=== PATIENT | female | born 1955 | race African-American/Black ===

== ENCOUNTER → 2016-10-23 | Outpatient (CLI) | payer MEDICAID ==
[~2016-10-23] MED LIST: AMIO200T33 OR; ASPI-266 PO; CARV25TA55 OR; CLOP75TA28 PO; FAM20T PO; FURO40TA OR; HYDR200T36 PO; IPRAAER5 IN; LEVO25TA6 PO; POTA20TA53 OR; SPIR25TA88 PO; VALS80TA42 OR
[2016-10-23 08:25] VITALS: BP 130/95
[2016-10-23 09:30] VITALS: BP 155/91
[2016-10-23 12:26] LABS: Hematocrit 39.3 % (36.0-46.0); Mean Corpuscular Hemoglobin 28.7 pg (28.0-32.0); Mean Corpuscular Volume 86.9 fL (80.0-100.0); Mean Platelet Volume 11.1 fL (7.4-10.4); Platelet Count (auto) 164 10^3/uL (140-450); Red Cell Distribution Width 13.6 % (11.6-16.0); SUSPECT VIEW TRANSMISSION; White Blood Cell 3.7 10^3/uL (4.4-10.8)
[2016-10-23 12:50] LABS: Metamyelocytes % 0; Myelocytes % 0; Promyelocytes % 0; Reactive Lymphocytes 0
[2016-10-23 12:56] LABS: INR 0.99 (0.9-1.15); Partial Thromboplastin Time 31.6 sec (22.64-33.71); Prothrombin Time 10.8 sec (9.37-12.3)
[2016-10-23 13:09] LABS: Calcium 9.8 mg/dL (8.5-10.1)
[2016-10-23 13:11] LABS: BUN/Creatinine Ratio 21.4
[2016-10-23 14:01] LABS: Platelet Estimate Adequate; RBC Morphology Normal
== END | disposition home or self-care (01) ==
LOC: Rad HDHVI 08:11
PROVIDERS: ATTEND Internal Medicine Cardiovascular Disease
DX: I10 Essential (primary) hypertension (principal); D64.9 Anemia, unspecified; R79.1 Abnormal coagulation profile; Z01.812 Encounter for preprocedural laboratory examination
CPT/HCPCS: 36415; 71020; 80048; 85007; 85027; 85610; 85730; 93005; G0463

== ENCOUNTER 2016-10-25 07:46 | Inpatient (IN) | payer MEDICAID ==
[~2016-10-25] VITALS: Ht 175.3 cm; Wt 82.3 kg
[2016-10-25] MEDS ORDERED: ceFAZolin 1GM/50ML D5W 50 ML IV ONE (08:15)
[2016-10-25] MEDS ORDERED: VANCOMYCIN HCL 1000 MG VL IR ONE (08:15)
[2016-10-25] MEDS ORDERED: VANCOMYCIN 1GM/250ML D5W 250 ML IV ONE (08:15)
[2016-10-25] MEDS ORDERED: BENA1POW PO (08:44)
[2016-10-25] MEDS ORDERED: FURO20TA3 PO (08:44)
[2016-10-25] MEDS ORDERED: LISI-646 PO (08:44)
[2016-10-25] MEDS ORDERED: FAMO40TA49 PO (08:44)
[2016-10-25] MEDS ORDERED: SIMV-8 PO (08:44)
[2016-10-25] MEDS ORDERED: CARV3.1240 PO (08:44)
[2016-10-25] MEDS ORDERED: SPIR25TA89 PO (08:44)
[2016-10-25] MEDS ORDERED: MIDAZOLAM HCL 1MG/1ML-2 ML VIAL ONE (09:18)
[2016-10-25] MEDS ORDERED: fentaNYL CITRATE 100 MCG/2 ML VL ONE (09:18)
[2016-10-25] MEDS ORDERED: VANCOMYCIN HCL 1000 MG VL ONE (09:22)
[2016-10-25] MEDS ORDERED: SODIUM CHLORIDE 0.9% 1,000 ML IV SCH (11:50)
[2016-10-25] MEDS ORDERED: ACETAMINOPHEN 325 MG TAB PO PRN (12:00)
[2016-10-25] MEDS ORDERED: NITROGLYCERIN 0.4 MG SL TAB SL PRN (12:00)
[2016-10-25] MEDS ORDERED: MORPHINE SULF INJ 2 MG/ML SYRINGE 1ML IV PRN (12:00)
[2016-10-25 14:21] VITALS: BP 134/90
[2016-10-25] MEDS: HYDROcodone-ACET 5/325MG TAB PO PRN ×2 (16:15→21:13)
[2016-10-25 21:40] VITALS: BP 106/55
[2016-10-25] MEDS ORDERED: PATIENTS OWN MEDICATION (Benazepril Hcl 40 MG) PO SCH ×2 (22:00)
[2016-10-25] MEDS ORDERED: ATORVASTATIN 20 MG TAB PO SCH (22:00)
[2016-10-25] MEDS: FAMOTIDINE 20 MG TAB PO SCH (22:19)
[2016-10-25] MEDS: VANCOMYCIN 1GM/250ML D5W 250 ML IV SCH (22:19)
[2016-10-26 04:50] VITALS: BP 99/60
[2016-10-26] MEDS: FAMOTIDINE 20 MG TAB PO SCH (08:47)
[2016-10-26 08:51] VITALS: BP 121/79
[2016-10-26] MEDS: VANCOMYCIN 1GM/250ML D5W 250 ML IV SCH (08:51)
[2016-10-26] MEDS ORDERED: FUROSEMIDE 20 MG TAB PO SCH (10:00)
[2016-10-26] MEDS ORDERED: LISINOPRIL 20 MG TAB PO SCH (10:00)
[2016-10-26] MEDS ORDERED: SPIRONOLACTONE 25 MG TAB PO SCH (10:00)
[2016-10-26] MEDS ORDERED: CARVEDILOL 3.125 MG TAB PO SCH (10:00)
[2016-10-26] MEDS: HYDROcodone-ACET 5/325MG TAB PO PRN (11:34)
[2016-10-26 13:00] VITALS: BP 116/67
== END 2016-10-26 15:45 | disposition home or self-care (01) | DRG 161 ==
LOC: CATH 07:46 → TELE 07:47 → TELE-E-ADS 14:25 → TELE-WESTW 18:45
PROVIDERS: ADMIT Internal Medicine Cardiovascular Disease; ATTEND Internal Medicine Cardiovascular Disease
PROC: 0JPT0PZ Removal of Cardiac Rhythm Related Device from Trunk Subcutaneous Tissue and Fascia, Open Approach (ICD-10-PCS; principal; 2016-10-25)
PROC: 0JH609Z Insertion of Cardiac Resynchronization Defibrillator Pulse Generator into Chest Subcutaneous Tissue and Fascia, Open Approach (ICD-10-PCS; 2016-10-25)
PROC: 02HL3KZ Insertion of Defibrillator Lead into Left Ventricle, Percutaneous Approach (ICD-10-PCS; 2016-10-25)
DX: I42.0 Dilated cardiomyopathy (principal); I50.21 Acute systolic (congestive) heart failure; I45.9 Conduction disorder, unspecified
CPT/HCPCS: 33216; 33264; 71010; 93005; J0690; J2250

== ENCOUNTER 2017-10-28 19:28 | Inpatient (IN) | payer MEDICAID ==
[~2017-10-28] VITALS: Ht 175.3 cm; Wt 76.7 kg
[~2017-10-28 19:28] MED LIST changes: -AMIO200T33 OR; -ASPI-266 PO; +BENA1POW PO; -CARV25TA55 OR; +CARV3.1240 PO; -CLOP75TA28 PO; -FAM20T PO; +FAMO40TA49 PO; +FURO20TA3 PO; -FURO40TA OR; -HYDR200T36 PO; -IPRAAER5 IN; -LEVO25TA6 PO; +LISI-646 PO; -POTA20TA53 OR; +SIMV-8 PO; -SPIR25TA88 PO; +SPIR25TA89 PO; -VALS80TA42 OR
[2017-10-28 20:28] LABS: Basophils # (auto) 0 uL; Basophils % (auto) 0.5 % (0.0-2.0); Eosinophils # (auto) 0.2 uL; Eosinophils % (auto) 2.9 % (0.0-7.0); Hematocrit 40.8 % (36.0-46.0); Hemoglobin 13.4 g/dL (12.2-16.2); Lymphocytes # (auto) 2.6 uL; Lymphocytes % (auto) 47.4 % (10.0-50.0); Mean Corpuscular Hemoglobin 28.7 pg (28.0-32.0); Mean Corpuscular Hgb Conc. 32.8 g/dL (32.0-36.0); Mean Corpuscular Volume 87.6 fL (80.0-100.0); Monocytes # (auto) 0.5 uL; Monocytes % (auto) 9.2 % (0.0-12.0); Neutrophils # (auto) 2.2 uL; Nucleated Red Blood Cells % 0.1 %; Platelet Count (auto) 150 10^3/uL (140-450); Red Blood Cells 4.66 10^6/uL (4.0-5.20); White Blood Cell 5.4 10^3/uL (4.4-10.8)
[2017-10-28 20:48] LABS: Albumin 3.8 g/dL (3.4-5.0); Anion Gap 9 (5-15); Blood Urea Nitrogen 20 mg/dL (7-18); Calcium 9.7 mg/dL (8.5-10.1); Carbon Dioxide 21 mmol/L (21-32); Chloride 111 mmol/L (98-107); Glucose 99 mg/dL (74-106); Potassium 3.9 mmol/L (3.5-5.1); Sodium 141 mmol/L (136-145)
[2017-10-28 20:51] LABS: Alanine Aminotransferase 22 U/L (13-56); Aspartate Aminotransferase 15 U/L (15-37); BUN/Creatinine Ratio 22.2; GFR African American 82 mL/min; GFR Non-African American 68 mL/min
[2017-10-28 20:52] LABS: INR 0.9 (0.9-1.15); Partial Thromboplastin Time 28.5 sec (23.78-33.04); Prothrombin Time 9.7 sec (9.27-12.13)
[2017-10-28 21:07] LABS: Alkaline Phosphatase 70 U/L (45-117); Bilirubin, Total 0.5 mg/dL (0.2-1.0); Total Protein 7.5 g/dL (6.4-8.2)
[2017-10-28 21:48] LABS: Urine Bacteria NONE SEEN /hpf (None Seen); Urine Blood Negative /uL (Negative); Urine Mucus FEW (None Seen); Urine Specific Gravity 1.025 (1.001-1.035); Urine WBC 3 /hpf (0 - 5)
[2017-10-29] MEDS ORDERED: NITROGLYCERIN 0.4 MG SL TAB SL PRN (01:45)
[2017-10-29] MEDS ORDERED: HYDROcodone-ACET 5/325MG TAB PO PRN (01:45)
[2017-10-29] MEDS ORDERED: ONDANSETRON HCL 4 MG/2 ML VIAL IV PRN (01:45)
[2017-10-29] MEDS ORDERED: ACETAMINOPHEN 500 MG TAB PO PRN (01:45)
[2017-10-29 02:40] VITALS: BP 137/93
[2017-10-29 05:01] VITALS: BP 122/80
[2017-10-29 06:41] LABS: Basophils # (auto) 0 uL; Basophils % (auto) 0.4 % (0.0-2.0); Eosinophils # (auto) 0.2 uL; Eosinophils % (auto) 2.9 % (0.0-7.0); Hematocrit 38.8 % (36.0-46.0); Hemoglobin 12.7 g/dL (12.2-16.2); Lymphocytes % (auto) 54.6 % (10.0-50.0); Mean Corpuscular Hemoglobin 28.9 pg (28.0-32.0); Mean Corpuscular Hgb Conc. 32.7 g/dL (32.0-36.0); Mean Corpuscular Volume 88.3 fL (80.0-100.0); Monocytes # (auto) 0.5 uL; Monocytes % (auto) 8.4 % (0.0-12.0); Neutrophils # (auto) 1.9 uL; Neutrophils % (auto) 33.7 % (37.0-80.0); Nucleated Red Blood Cells % 0.1 %; Platelet Count (auto) 131 10^3/uL (140-450); Red Blood Cells 4.39 10^6/uL (4.0-5.20); Red Cell Distribution Width 13.7 % (11.8-14.3); White Blood Cell 5.6 10^3/uL (4.4-10.8)
[2017-10-29 07:06] LABS: Potassium 3.6 mmol/L (3.5-5.1)
[2017-10-29 07:30] LABS: BUN/Creatinine Ratio 23.5
[2017-10-29 08:15] VITALS: BP 122/80
[2017-10-29 08:57] VITALS: BP 119/69
[2017-10-29] MEDS ORDERED: CARVEDILOL 3.125 MG TAB PO SCH (10:00)
[2017-10-29] MEDS ORDERED: LISINOPRIL 20 MG TAB PO SCH (10:00)
[2017-10-29] MEDS ORDERED: ASPirin-EC 81 mg tab PO SCH (10:00)
[2017-10-29] MEDS ORDERED: SPIRONOLACTONE 25 MG TAB PO SCH (10:00)
[2017-10-29] MEDS ORDERED: FUROSEMIDE 20 MG TAB PO SCH (10:00)
[2017-10-29] MEDS ORDERED: FAMOTIDINE 20 MG TAB PO SCH (10:00)
[2017-10-29 13:01] VITALS: BP 137/99
== END 2017-10-29 14:30 | disposition home or self-care (01) | DRG 198 ==
LOC: ER 19:28 → EDBD 19:28 → TELE 19:29 → TELE-EAST 10-29 02:40
PROVIDERS: ADMIT Nurse Practitioner Family; ATTEND Internal Medicine Pulmonary Disease
DX: R07.89 Other chest pain (principal); I25.10 Atherosclerotic heart disease of native coronary artery without angina pectoris; I11.0 Hypertensive heart disease with heart failure; I42.9 Cardiomyopathy, unspecified; I50.42 Chronic combined systolic (congestive) and diastolic (congestive) heart failure; E78.5 Hyperlipidemia, unspecified; F17.210 Nicotine dependence, cigarettes, uncomplicated; K59.09 Other constipation; F41.9 Anxiety disorder, unspecified; Z82.49 Family history of ischemic heart disease and other diseases of the circulatory system; Z83.3 Family history of diabetes mellitus; Z86.73 Personal history of transient ischemic attack (TIA), and cerebral infarction without residual deficits; Z95.0 Presence of cardiac pacemaker; Z79.899 Other long term (current) drug therapy; Z88.5 Allergy status to narcotic agent; Z88.2 Allergy status to sulfonamides; Z90.49 Acquired absence of other specified parts of digestive tract; Z98.51 Tubal ligation status
CPT/HCPCS: 36415; 71046; 80048; 80053; 81001; 83735; 83880; 84484; 85025; 85379; 85610; 85730; 93005; 94761

== ENCOUNTER → 2020-05-30 | Outpatient (CLI) | payer MEDICAID ==
[~2020-05-30] MED LIST changes: -BENA1POW PO; +BENAPOW2 PO; -FAMO40TA49 PO; +FAMO40TA7 PO; -LISI-646 PO; +LISI20TA28 PO; +SPIR25TA8 PO; -SPIR25TA89 PO
== END | disposition home or self-care (01) ==
LOC: Rad HDHVI 15:02
PROVIDERS: ATTEND Internal Medicine Cardiovascular Disease
DX: I50.43 Acute on chronic combined systolic (congestive) and diastolic (congestive) heart failure (principal); I42.0 Dilated cardiomyopathy
CPT/HCPCS: 93306

== ENCOUNTER → 2020-06-01 | Outpatient (CLI) | payer MEDICAID ==
[~2020-06-01] VITALS: Ht 175.3 cm; Wt 74.8 kg
[~2020-06-01] MED LIST changes: +LISI-646 PO; -LISI20TA28 PO
== END | disposition home or self-care (01) ==
LOC: Rad HDHVI 09:32
PROVIDERS: ATTEND Internal Medicine Cardiovascular Disease
DX: I50.43 Acute on chronic combined systolic (congestive) and diastolic (congestive) heart failure (principal); E78.00 Pure hypercholesterolemia, unspecified; I42.0 Dilated cardiomyopathy; I95.9 Hypotension, unspecified; R55 Syncope and collapse; R09.89 Other specified symptoms and signs involving the circulatory and respiratory systems; Z95.0 Presence of cardiac pacemaker; Z88.2 Allergy status to sulfonamides
CPT/HCPCS: 78452; 93017; 96374; A9500

== ENCOUNTER → 2021-09-29 | Outpatient (CLI) | payer MEDICAID ==
[~2021-09-29] MED LIST changes: -LISI-646 PO; +LISI20TA28 PO
== END | disposition home or self-care (01) ==
LOC: Rad HDHVI 09:45
PROVIDERS: ATTEND Internal Medicine Cardiovascular Disease
DX: R07.89 Other chest pain (principal); R06.02 Shortness of breath
CPT/HCPCS: 93306

== ENCOUNTER → 2022-07-18 | Outpatient (CLI) | payer MEDICARE, MEDICAID | END | disposition home or self-care (01) | LOC: Rad HDHVI 13:49 | PROVIDERS: ATTEND Internal Medicine Cardiovascular Disease | DX: I51.7 Cardiomegaly (principal); R06.02 Shortness of breath | CPT/HCPCS: 93306 ==

== ENCOUNTER → 2022-07-23 | Outpatient (CLI) | payer MEDICARE, MEDICAID ==
[~2022-07-23] VITALS: Ht 175.3 cm; Wt 77.1 kg
== END | disposition home or self-care (01) ==
LOC: Rad HDHVI 13:09
PROVIDERS: ATTEND Internal Medicine Cardiovascular Disease
DX: Z01.810 Encounter for preprocedural cardiovascular examination (principal); I10 Essential (primary) hypertension; E78.5 Hyperlipidemia, unspecified; I25.10 Atherosclerotic heart disease of native coronary artery without angina pectoris; R07.9 Chest pain, unspecified; Z95.0 Presence of cardiac pacemaker
CPT/HCPCS: 78452; 93017; 96374; A9500

== ENCOUNTER 2023-02-19 12:32 | Emergency (ER) | payer MEDICARE, MEDICAID ==
[~2023-02-19] VITALS: Ht 175.3 cm; Wt 79.0 kg
[~2023-02-19 12:32] MED LIST changes: -LISI20TA28 PO; +LISI20TA56 PO; -SIMV-8 PO; +SIMV20TA20 PO
[2023-02-19 12:45] VITALS: BP 124/79; PULSE 67; RESP 16; O2SAT 100
[2023-02-19] MEDS ORDERED: IBU600T PO (16:33)
== END 2023-02-19 15:15 | disposition home or self-care (01) ==
LOC: ER 12:32
DX: M13.811 Other specified arthritis, right shoulder (principal); M79.601 Pain in right arm; I11.0 Hypertensive heart disease with heart failure; I50.9 Heart failure, unspecified; E78.5 Hyperlipidemia, unspecified; F17.210 Nicotine dependence, cigarettes, uncomplicated; Z88.6 Allergy status to analgesic agent; Z88.2 Allergy status to sulfonamides; Z86.73 Personal history of transient ischemic attack (TIA), and cerebral infarction without residual deficits; Z90.49 Acquired absence of other specified parts of digestive tract; Z98.51 Tubal ligation status
CPT/HCPCS: 73030

== ENCOUNTER 2023-03-29 09:40 | Inpatient (IN) | payer MEDICARE, MEDICAID ==
[~2023-03-29] VITALS: Ht 175.3 cm; Wt 78.0 kg
[2023-03-29 00:03] VITALS: BP 128/70; PULSE 88; RESP 18; TEMP 97.7; O2SAT 95
[~2023-03-29 09:40] MED LIST changes: +IBU600T PO
[2023-03-29 10:30] LABS: Hematocrit 46.2 % (36.0-46.0); Mean Corpuscular Hemoglobin 28.3 pg (28.0-32.0); Mean Corpuscular Hgb Conc. 32.5 g/dL (32.0-36.0); Mean Corpuscular Volume 87.2 fL (80.0-100.0); Red Cell Distribution Width 14.3 % (11.8-14.3); White Blood Cell 5.6 10^3/uL (4.4-10.8)
[2023-03-29 10:34] LABS: Band Neutrophils % (manual) 0; Basophils % (manual) 0 (0.0-2.0); Blast Cells 0; Metamyelocytes % 0; Myelocytes % 0; Promyelocytes % 0; Reactive Lymphocytes 0
[2023-03-29 10:40] VITALS: PULSE 65; RESP 18; O2SAT 94
[2023-03-29 10:44] LABS: Alanine Aminotransferase 15 U/L (7-40); Alkaline Phosphatase 61 U/L (46-116); Aspartate Aminotransferase 19 U/L (13-40); Carbon Dioxide 27 mmol/L (20-30); Chloride 108 mmol/L (98-107); Glucose 94 mg/dL (74-106)
[2023-03-29 10:45] LABS: Albumin 4.9 g/dL (3.2-4.8); Anion Gap 5 (5-15); BUN/Creatinine Ratio 8.9 (10.0-20.0); Bilirubin, Total 0.6 mg/dL (0.2-1.0); Blood Urea Nitrogen 8 mg/dL (9-23); Sodium 140 mmol/L (136-145); Total Protein 7.5 g/dL (5.7-8.2)
[2023-03-29 11:04] LABS: Magnesium 2.3 mg/dL (1.6-2.6)
[2023-03-29 11:44] LABS: INR 0.98 (0.9-1.15); Partial Thromboplastin Time 29.7 SEC (24.5-34.5); Prothrombin Time 10.3 sec (9.3-11.8)
[2023-03-29] MEDS ORDERED: hydrALAZINE HCL 20 MG/ML VL IV PRN (13:45)
[2023-03-29 14:04] LABS: Eosinophils % (manual) 2 (0-7); Lymphocytes % (manual) 55 (10.0-50.0); Monocytes % (manual) 9 (0-12); Platelet Estimate Decreased
[2023-03-29 17:46] LABS: Triglycerides 129 mg/dL (< 150)
[2023-03-29 17:47] LABS: LDL Cholesterol 104 mg/dL (< 100)
[2023-03-29 17:48] LABS: HDL Cholesterol 70 mg/dL (40-59)
[2023-03-29 17:49] LABS: Cholesterol 186 mg/dL (< 200)
[2023-03-29] MEDS: FUROSEMIDE 20 MG/2 ML VIAL IV SCH (18:43)
[2023-03-29 19:45] VITALS: PULSE 72; RESP 16; O2SAT 96
[2023-03-29] MEDS: CARVEDILOL 3.125 MG TAB PO SCH (23:43)
[2023-03-30] VITALS (8 sets, daily range): BP systolic 105–128; BP diastolic 65–85; PULSE 50–79; RESP 16–18; TEMP 97.7–98.5; O2SAT 92–99
[2023-03-30] MEDS: ATORVASTATIN 20 MG TAB PO SCH ×2 (00:26→21:22)
[2023-03-30] MEDS: FUROSEMIDE 20 MG/2 ML VIAL IV SCH (05:16)
[2023-03-30 06:22] LABS: LDL Cholesterol 93 mg/dL (< 100); Triglycerides 89 mg/dL (< 150)
[2023-03-30 06:24] LABS: Cholesterol 167 mg/dL (< 200); HDL Cholesterol 58 mg/dL (40-59)
[2023-03-30 08:06] LABS: RPR Non Reactive (Non Reactive)
[2023-03-30] MEDS ORDERED: FOL5I IJ (08:27)
[2023-03-30] MEDS ORDERED: SENN-177 PO (08:34)
[2023-03-30] MEDS ORDERED: MULT-1018 PO (08:34)
[2023-03-30] MEDS ORDERED: CHOL20007 PO ×2 (08:34→08:51)
[2023-03-30] MEDS ORDERED: CYAN-17 PO (08:34)
[2023-03-30] MEDS ORDERED: ONDA-155 PO (08:34)
[2023-03-30] MEDS ORDERED: LANS30CA57 PO (08:34)
[2023-03-30] MEDS ORDERED: DONETAB5 PO (08:34)
[2023-03-30] MEDS ORDERED: FAMOTIDINE 20 MG TAB PO SCH (10:00)
[2023-03-30] MEDS ORDERED: PATIENTS OWN MEDICATION (Simvastatin 20 MG) PO SCH (10:00)
[2023-03-30] MEDS: LISINOPRIL 20 MG TAB PO SCH (10:38)
[2023-03-30] MEDS: ENOXAPARIN SOD 40 MG/0.4 ML SYRINGE SC SCH (10:38)
[2023-03-30] MEDS: CARVEDILOL 3.125 MG TAB PO SCH ×2 (10:39→10:40)
[2023-03-30] MEDS: ASPirin 81 mg TAB PO SCH (10:39)
[2023-03-30] MEDS ORDERED: SPIRONOLACTONE 25 MG TAB PO ONE (12:45)
[2023-03-30 14:23] LABS: Basophils # (auto) 0 10 ^3/uL (0-0.2); Basophils % (auto) 0.8 % (0.0-2.0); Eosinophils # (auto) 0.1 10 ^3/uL (0-0.8); Eosinophils % (auto) 2.6 % (0.0-7.0); Hematocrit 43.9 % (36.0-46.0); Hemoglobin 14.1 g/dL (12.2-16.2); Lymphocytes # (auto) 2.4 10 ^3/uL (0.4-5.4); Lymphocytes % (auto) 52.1 % (10.0-50.0); Mean Corpuscular Hemoglobin 28.3 pg (28.0-32.0); Mean Corpuscular Hgb Conc. 32.1 g/dL (32.0-36.0); Mean Corpuscular Volume 88.1 fL (80.0-100.0); Monocytes # (auto) 0.3 10 ^3/uL (0-1.3); Monocytes % (auto) 6.3 % (0.0-12.0); Neutrophils # (auto) 1.8 10 ^3/uL (1.6-8.6); Neutrophils % (auto) 38.2 % (37.0-80.0); Nucleated Red Blood Cells % 0.1 %; Red Blood Cells 4.99 10^6/uL (4.0-5.20); Red Cell Distribution Width 14.2 % (11.8-14.3); White Blood Cell 4.6 10^3/uL (4.4-10.8)
[2023-03-30 14:32] LABS: Chloride 108 mmol/L (98-107); Potassium 4.5 mmol/L (3.5-5.1); Sodium 140 mmol/L (136-145)
[2023-03-30 14:33] LABS: Anion Gap 5 (5-15); Calcium 9.8 mg/dL (8.7-10.4); Carbon Dioxide 27 mmol/L (20-30)
[2023-03-30 14:38] LABS: Blood Urea Nitrogen 16 mg/dL (9-23); Glucose 109 mg/dL (74-106)
[2023-03-30 14:39] LABS: Magnesium 2.2 mg/dL (1.6-2.6)
[2023-03-30] MEDS ORDERED: DOCUSATE SOD 100 MG CAP PO PRN (16:30)
[2023-03-30 16:37] LABS: Giant Platelets Few; Platelet Estimate Decreased
[2023-03-30] MEDS ORDERED: ATORVASTATIN 20 MG TAB PO SCH (22:00)
[2023-03-31] VITALS (7 sets, daily range): BP systolic 112–124; BP diastolic 59–94; PULSE 55–78; RESP 16–55; TEMP 97.6–97.9; O2SAT 97–99
[2023-03-31 06:23] LABS: Chloride 107 mmol/L (98-107); Potassium 3.9 mmol/L (3.5-5.1); Sodium 139 mmol/L (136-145)
[2023-03-31 06:24] LABS: Anion Gap 8 (5-15); Carbon Dioxide 24 mmol/L (20-30)
[2023-03-31 06:29] LABS: Glucose 92 mg/dL (74-106)
[2023-03-31 06:30] LABS: BUN/Creatinine Ratio 11.8 (10.0-20.0); Blood Urea Nitrogen 11 mg/dL (9-23)
[2023-03-31] MEDS: ENOXAPARIN SOD 40 MG/0.4 ML SYRINGE SC SCH (11:10)
[2023-03-31] MEDS: SPIRONOLACTONE 25 MG TAB PO SCH (11:11)
[2023-03-31] MEDS: ASPirin 81 mg TAB PO SCH (11:11)
[2023-03-31] MEDS: LISINOPRIL 20 MG TAB PO SCH (11:12)
[2023-03-31] MEDS: CARVEDILOL 3.125 MG TAB PO SCH ×2 (11:14→22:16)
[2023-03-31] MEDS: ATORVASTATIN 20 MG TAB PO SCH (22:16)
[2023-03-31 22:41] LABS: Urine Bacteria FEW /hpf (None Seen); Urine Blood Negative /uL (Negative); Urine Clarity Clear (Clear); Urine Color Yellow (Yellow); Urine Protein, UAD Negative (Negative); Urine Specific Gravity 1.018 (1.001-1.035); Urine Urobilinogen Normal (Negative); Urine WBC 1 /hpf (0 - 5); Urine pH 6.5 (5.0-8.0)
[2023-03-31 22:55] LABS: Amphetamine Screen, Urine Neg (NEGATIVE); Barbiturate Scree,Urine Neg (NEGATIVE); Benzodiazephine Screen, Urine Neg (NEGATIVE); Cannabinoid Screen, Urine Neg (NEGATIVE); Cocaine Screen, Urine Neg (NEGATIVE); Opiate Scree,Urine Neg (NEGATIVE); Phencyclidine Screen, Urine Neg (NEGATIVE)
[2023-04-01 05:00] VITALS: BP 107/64; PULSE 60; RESP 17; TEMP 97.8; O2SAT 100
[2023-04-01 06:59] LABS: Hematocrit 41.1 % (36.0-46.0); Hemoglobin 13.2 g/dL (12.2-16.2); Mean Corpuscular Hemoglobin 27.9 pg (28.0-32.0); Mean Corpuscular Volume 87.2 fL (80.0-100.0); Red Blood Cells 4.71 10^6/uL (4.0-5.20); Red Cell Distribution Width 14.1 % (11.8-14.3); White Blood Cell 5.1 10^3/uL (4.4-10.8)
[2023-04-01 07:07] LABS: Band Neutrophils % (manual) 0; Basophils % (manual) 0 (0.0-2.0); Blast Cells 0; Metamyelocytes % 0; Myelocytes % 0; Promyelocytes % 0
[2023-04-01 07:57] LABS: Alanine Aminotransferase 11 U/L (7-40); Albumin 4.2 g/dL (3.2-4.8); Alkaline Phosphatase 49 U/L (46-116); Anion Gap 7 (5-15); Aspartate Aminotransferase 15 U/L (13-40); BUN/Creatinine Ratio 12.5 (10.0-20.0); Blood Urea Nitrogen 12 mg/dL (9-23); Calcium 9.6 mg/dL (8.7-10.4); Carbon Dioxide 25 mmol/L (20-30); Chloride 108 mmol/L (98-107); Glucose 85 mg/dL (74-106); Magnesium 2.2 mg/dL (1.6-2.6); Potassium 4.1 mmol/L (3.5-5.1); Sodium 140 mmol/L (136-145)
[2023-04-01 07:58] LABS: Total Protein 6.6 g/dL (5.7-8.2)
[2023-04-01 08:00] VITALS: PULSE 60
[2023-04-01 08:31] LABS: Eosinophils % (manual) 4 (0-7); Lymphocytes % (manual) 71 (10.0-50.0); Monocytes % (manual) 5 (0-12); Reactive Lymphocytes 2
[2023-04-01 08:32] LABS: Platelet Estimate Decreased
[2023-04-01 08:54] VITALS: BP 108/57; PULSE 69; RESP 17; TEMP 97.6; O2SAT 95
[2023-04-01] MEDS: SPIRONOLACTONE 25 MG TAB PO SCH (09:09)
[2023-04-01] MEDS: ENOXAPARIN SOD 40 MG/0.4 ML SYRINGE SC SCH (09:10)
[2023-04-01] MEDS: ASPirin 81 mg TAB PO SCH (09:10)
[2023-04-01] MEDS: CARVEDILOL 3.125 MG TAB PO SCH (09:10)
[2023-04-01] MEDS: LISINOPRIL 20 MG TAB PO SCH (09:10)
[2023-04-01] MEDS ORDERED: APIXABAN 2.5 MG TAB PO SCH (10:00)
[2023-04-01] MEDS ORDERED: ASPI-325 PO (10:42)
[2023-04-01] MEDS ORDERED: APIX2.5T PO (10:42)
[2023-04-01] MEDS ORDERED: ATOR20TA50 PO (10:42)
[2023-04-01 13:27] VITALS: BP 130/72; PULSE 75; TEMP 36.4
== END 2023-04-01 14:08 | disposition home or self-care (01) | DRG 69 ==
LOC: ER 09:40 → TELE-EAST 13:28 → TELE 13:28 → TELE-EAST 23:11
PROVIDERS: ADMIT Internal Medicine Pulmonary Disease; ATTEND Student in an Organized Health Care Education/Training Program
DX: G45.9 Transient cerebral ischemic attack, unspecified (principal); I50.43 Acute on chronic combined systolic (congestive) and diastolic (congestive) heart failure; I42.0 Dilated cardiomyopathy; I11.0 Hypertensive heart disease with heart failure; R20.2 Paresthesia of skin; E78.5 Hyperlipidemia, unspecified; I48.91 Unspecified atrial fibrillation; F17.210 Nicotine dependence, cigarettes, uncomplicated; F41.9 Anxiety disorder, unspecified; Z74.01 Bed confinement status; Z79.82 Long term (current) use of aspirin; Z79.899 Other long term (current) drug therapy; Z82.49 Family history of ischemic heart disease and other diseases of the circulatory system; Z95.810 Presence of automatic (implantable) cardiac defibrillator; Z83.3 Family history of diabetes mellitus; Z86.73 Personal history of transient ischemic attack (TIA), and cerebral infarction without residual deficits; Z90.49 Acquired absence of other specified parts of digestive tract; Z98.51 Tubal ligation status; Z71.6 Tobacco abuse counseling
CPT/HCPCS: 36415; 70450; 71045; 80048; 80053; 80061; 80307; 81001; 82962; 83735; 83880; 84439; 84443; 84484; 85007; 85025; 85027; 85610; 85730; 86592; 86850; 86900; 86901; 92610; 93005; 93306; 93886; 95819; 96372; 96374; 97110; 97116; 97163; 97530; G0378

== ENCOUNTER → 2023-05-06 | Outpatient (CLI) | payer MEDICARE, MEDICAID ==
[~2023-05-06] MED LIST changes: +APIX2.5T PO; +ASPI-325 PO; +ATOR20TA50 PO; +CHOL20007 PO; +CYAN-17 PO; +DONETAB5 PO; +FOL5I IJ; +LANS30CA57 PO; +MULT-1018 PO; +ONDA-155 PO; +SENN-177 PO
== END | disposition home or self-care (01) ==
LOC: Rad HDHVI 13:49
PROVIDERS: ATTEND Internal Medicine Cardiovascular Disease
DX: I08.1 Rheumatic disorders of both mitral and tricuspid valves (principal); I11.9 Hypertensive heart disease without heart failure; E78.5 Hyperlipidemia, unspecified; Z95.0 Presence of cardiac pacemaker
CPT/HCPCS: 93306